=== PATIENT | female | born 1945 | race Caucasian/White ===

== ENCOUNTER 2019-10-01 16:05 | Emergency (ER) | payer OTHER ==
[~2019-10-01] VITALS: Ht 61 cm; Wt 54.4 kg
--- NOTE | 2019-10-01 16:30 | NUR ---
[facility] CAN NOT PROVIDE PT'S HOME MEDICATION LIST AT THIS TIME. THEY ARE GOING TO BRING IT LATER.
[2019-10-01] MEDS ORDERED: OLANZAPINE 5 MG TABLET ONE (16:38)
[2019-10-01] MEDS ORDERED: VANCOMYCIN IV 200 ML ONE (16:40)
[2019-10-01] MEDS ORDERED: PIPERACILLIN/TAZOBACTAM/D5W 50 ML IV ONE (16:41)
[2019-10-01] MEDS ORDERED: OLANZAPINE 5 MG TABLET PO ONE (16:45)
[2019-10-01] MEDS ORDERED: PIPERACILLIN SODIUM/TAZOBACTAM 3.375 G in IV DEXTROSE 5% 50 ML IV ONE (16:45)
[2019-10-01] MEDS ORDERED: VANCOMYCIN IV 1,000 MG in IV DEXTROSE 5% 250 ML IV ONE (16:45)
[2019-10-01] MEDS ORDERED: IV NORMAL SALINE 1000 ML BAG IV ONE (16:45)
[2019-10-01 16:58] LABS: BASOPHILS # (AUTO) 0.1 K/uL (0.0-8.0); BASOPHILS % (AUTO) 0.3 % (0.0-2.0); EOSINOPHILS # (AUTO) 0.1 K/uL (0.0-0.7); EOSINOPHILS % (AUTO) 0.5 % (0.0-7.0); HEMATOCRIT 37.9 % (31.2-41.9); HEMOGLOBIN 12.4 g/dL (10.9-14.3); LYMPHOCYTES % (AUTO) 3.6 % (20.5-51.5); MEAN CORPUSCULAR HEMOGLOBIN 32.3 uug (24.7-32.8); MEAN CORPUSCULAR HGB CONC 33 g/dL (32.3-35.6); MEAN CORPUSCULAR VOLUME 98.1 fL (75.5-95.3); MONOCYTES # (AUTO) 2.6 K/uL (2.0-10.0); MONOCYTES % (AUTO) 9.7 % (0.0-11.0); NEUTROPHILS # (AUTO) 22.7 K/uL (1.8-8.9); NEUTROPHILS % (AUTO) 85.9 % (38.5-71.5); PLATELET COUNT (AUTO) 338 K/uL (179-408); RED BLOOD CELL COUNT(AUTO) 3.86 MIL/uL (3.63-4.92)
[2019-10-01 17:05] LABS: CARBON DIOXIDE 32 mmol/L (21-32); CHLORIDE 113 mmol/L (98-107); CREATININE 1.4 mg/dL (0.6-1.3); GLUCOSE 154 mg/dL (74-106); POTASSIUM 3.8 mmol/L (3.5-5.1); UREA NITROGEN, BLOOD 54 mg/dL (7-18)
[2019-10-01 17:08] LABS: WHITE BLOOD COUNT (AUTO) 26.4 K/uL (3.8-11.8)
[2019-10-01 17:10] LABS: ALANINE AMINOTRANSFERASE 144 U/L (14-59); ALKALINE PHOSPHATASE 79 U/L (50-136); ASPARTATE AMINOTRANSFERASE 100 U/L (15-37); BILIRUBIN,DIRECT 0.2 mg/dL (0.0-0.2); BILIRUBIN,TOTAL 0.7 mg/dL (0.2-1.0); TOTAL PROTEIN, SERUM 8.1 g/dL (6.4-8.2)
[2019-10-01 17:24] LABS: BAND % (MANUAL) 9 % (0-10); LYMPHOCYTES % (MANUAL) 5 % (20-40); NEUTROPHILS % (MANUAL) 78 % (42-75)
[2019-10-01 17:25] LABS: MONOCYTES % (MANUAL) 8 % (2-10)
[2019-10-01] MEDS ORDERED: MORPHINE SULFATE 2 MG/1 ML DISP.SYRIN IV ONE (17:30)
[2019-10-01] MEDS ORDERED: ONDANSETRON 4 MG/2 ML VIAL IV ONE (17:30)
[2019-10-01] MEDS ORDERED: ONDANSETRON 4 MG/2 ML VIAL ONE (17:33)
[2019-10-01] MEDS ORDERED: MORPHINE SULFATE 2 MG/1 ML DISP.SYRIN ONE (17:34)
[2019-10-01] MEDS ORDERED: CRAN500T PO (18:15)
[2019-10-01] MEDS ORDERED: LEVO88TA5 PO (18:15)
[2019-10-01] MEDS ORDERED: BUPR75TA8 PO (18:15)
[2019-10-01] MEDS ORDERED: LISI-603 PO (18:18)
[2019-10-01] MEDS ORDERED: DIVA125T32 PO ×2 (18:18)
[2019-10-01] MEDS ORDERED: ACET-73 PO (18:20)
[2019-10-01] MEDS ORDERED: HYDR200T4 PO (18:20)
[2019-10-01] MEDS ORDERED: CHOL200059 PO (18:20)
[2019-10-01] MEDS ORDERED: LIDO5CRE18 TOP (18:24)
[2019-10-01] MEDS ORDERED: MELA10TA PO (18:24)
[2019-10-01] MEDS ORDERED: MIRT15TA7 PO (18:24)
--- NOTE | 2019-10-01 18:59 | NUR ---
Hands off report given to 7pm nurse Valentin, pending SWAN transfer information@this time. Patient is resting comfortably on gurney with eyes closed. Daughters are at bedside.
--- NOTE | 2019-10-01 19:00 | NUR ---
Dr. Castillo spoke to reciving physician regarding patients CT scan results.
--- NOTE | 2019-10-01 19:02 | NUR ---
received report from SALEEM Villanueva.
[2019-10-01] MEDS ORDERED: DEXAMETHASONE SOD PHOSPHATE 4 MG INJ ONE (19:15)
[2019-10-01] MEDS ORDERED: DEXAMETHASONE SOD PHOSPHATE 4 MG INJ IV ONE (19:15)
[2019-10-01] MEDS ORDERED: DEXAMETHASONE SOD PHOSPHATE 4 MG INJ IM ONE (19:15)
--- NOTE | 2019-10-01 19:41 | NUR ---
Kwadwo, from [facility], stated that patient has been accepted to [facility] on telemtry unit. Waiting on bed assingment and transporation status. Kwadwo stated information should be available within the hour.
--- NOTE | 2019-10-01 20:30 | NUR ---
[facility] case management called to provided information for patient transportation: Receiving facility: [facility] Room bed [id number] [phone] Accepting physician: Ashvin Wakefield ETA of mixing picker tender time: 1
--- NOTE | 2019-10-01 20:54 | NUR ---
called to give report to, Nely MONGE, at [facility].
--- NOTE | 2019-10-01 21:35 | NUR ---
patient picked up by ambulance. Report given to EMTDavey. Patient is in stable condition. Patient is to be transferred to [facility]. Report given prior to transfer. Patient in stable condition for transfer and VSS. Patient denies any pain/discomfort at this time. All medical inforation and documents handed to EMT.
== END 2019-10-01 21:40 | disposition short-term general hospital (02) ==
LOC: ER 16:05
DX: L03.211 Cellulitis of face (principal)
CPT/HCPCS: 36415; 70486; 71045; 80048; 80076; 83605 ×2; 84145; 85007; 85025; 85730; 87040 ×2; 93005; 96365; 96367; 96375; 99285; J1100; J2270; J2405; J2543; J3370; 70030-TC; A4663; J7030